=== PATIENT | female | born 2000 | race African-American/Black ===

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

== ENCOUNTER 2020-08-13 19:00 | Emergency (ER) | payer OTHER ==
[2020-08-13 19:37] VITALS: BP 111/56; PULSE 86; TEMP 98.5; BMI 26.6
== END 2020-08-13 20:15 | disposition home or self-care (01) ==
LOC: JER 19:00 → JERFT 19:00
DX: S93.602A Unspecified sprain of left foot, initial encounter (principal)
CPT/HCPCS: 73630-TC-RT-FY; 99283-25

== ENCOUNTER 2021-04-02 22:57 | Emergency (ER) | payer OTHER ==
[2021-04-02 23:48] VITALS: BP 100/60; PULSE 72; TEMP 98.1; BMI 25.0
[2021-04-03] MEDS ORDERED: MAG HYDROX/AL HYDROX/SIMETH 30 ML UNIT-DOSE CUP PO ONE (00:07)
[2021-04-03] MEDS ORDERED: SODIUM CHLORIDE 1,000 ML IV STA (00:07)
[2021-04-03] MEDS ORDERED: FAMOTIDINE 20 MG/50 ML IVPB 20 MG/50 ML MG IVPB ONE ×2 (00:07→00:43)
[2021-04-03 00:32] LABS: BASO % 0.4 % (0-2.0); HEMATOCRIT 38.2 % (32.4-45.2); HEMOGLOBIN 12.5 GM/dL (10.7-15.3); LYMPH % 22.2 % (8-40); MCH 25.8 pg (25.7-33.7); MCHC 32.8 g/dl (32.0-36.0); MEAN CELL VOLUME 78.6 fl (80-96); MEAN PLT VOLUME 7.9 fl (7.5-11.1); MONO % 6.2 % (3.8-10.2); NEUT % 70.2 % (42.8-82.8); PLATELET COUNT 217 10^3/uL (134-434); RBC 4.85 M/mm3 (3.60-5.2); RDW 15.8 % (11.6-15.6); WHITE BLOOD COUNT 9.2 K/mm3 (4.0-10.0)
[2021-04-03] MEDS ORDERED: MAG HYDROX/AL HYDROX/SIMETH 30 ML UNIT-DOSE CUP ONE (00:43)
[2021-04-03 00:55] LABS: CALCIUM 9.1 mg/dL (8.5-10.1)
[2021-04-03 00:56] LABS: BLOOD UREA NITROGEN 5.5 mg/dL (7-18)
[2021-04-03 00:59] LABS: CREATININE 0.8 mg/dL (0.55-1.3)
[2021-04-03 01:01] LABS: BILIRUBIN,TOTAL 0.6 mg/dL (0.2-1); TOT PROT 7.7 g/dl (6.4-8.2)
[2021-04-03 02:31] LABS: PH,URINE 6.5 (5.0-8.0); URINE APPEARANCE CLEAR; URINE BILIRUBIN NEGATIVE (NEGATIVE); URINE COLOR YELLOW; URINE GLUCOSE (UA) NEGATIVE (NEGATIVE); URINE KETONE 1+ (NEGATIVE); URINE LEUK ESTERASE TRACE (NEGATIVE); URINE NITRITE NEGATIVE (NEGATIVE); URINE PROTEIN NEGATIVE (NEGATIVE); URINE UROBILINOGEN 0.2 mg/dL (0.2-1.0)
[2021-04-03 02:35] LABS: EPI CELLS 9 /uL (0-25.1); HYALINE CASTS 0 /uL (0-3.1); URINE BACTERIA 318 /uL (0-1359); URINE RBC 2 /uL (0-23.9); URINE WBC 28 /uL (0-25.8)
== END 2021-04-03 02:47 | disposition home or self-care (01) ==
LOC: JER 22:57
PROC: 3E033GC Introduction of Other Therapeutic Substance into Peripheral Vein, Percutaneous Approach (ICD-10-PCS; principal; 2021-04-02)
PROC: 3E0337Z Introduction of Electrolytic and Water Balance Substance into Peripheral Vein, Percutaneous Approach (ICD-10-PCS; 2021-04-02)
DX: R14.0 Abdominal distension (gaseous) (principal); R10.33 Periumbilical pain
CPT/HCPCS: 36415; 74019-TC-FY; 76705-TC; 80053; 81003; 83690; 84703; 85025; 87086; 99285-25

== ENCOUNTER 2022-07-01 00:08 | Emergency (ER) | payer OTHER ==
[2022-07-01 00:32] VITALS: BP 105/70; PULSE 51; RESP 18; TEMP 98.1; BMI 23.3
== END 2022-07-01 01:10 | disposition home or self-care (01) ==
LOC: JER 00:08
DX: S01.111A Laceration without foreign body of right eyelid and periocular area, initial encounter (principal); Y99.9 Unspecified external cause status; Z48.02 Encounter for removal of sutures
CPT/HCPCS: 99281-25